=== PATIENT | female | born 1985 | race Caucasian/White ===

== ENCOUNTER 2016-05-01 18:52 | Emergency (ER) | payer OTHER ==
[~2016-05-01] VITALS: Ht 162.6 cm; Wt 63.5 kg
[2016-05-01 19:00] VITALS: BP 140/76; PULSE 78; RESP 20; TEMP 97.8; O2SAT 100
--- NOTE | 2016-05-01 19:00 | NUR ---
Patient to ER bed 7 to gown for evaluation. Side rails up. Report given to Joel KING.
--- NOTE | 2016-05-01 19:04 | NUR ---
Trina Brush NP at bedside.
--- NOTE | 2016-05-01 19:10 | NUR ---
PT IS AOX4, C/O RIGHT FLANK PAIN THAT RADIATES TO HER ABDOMEN X 1 DAY WITH PAIN SCALE 8/10. PT DENIES N/V, AFEBRILE.
[2016-05-01] MEDS ORDERED: KETOROLAC TROMETHAMINE 60 MG/2 ML VIAL IM ONE (19:15)
[2016-05-01 19:37] LABS: BILIRUBIN,URINE NEGATIVE (NEGATIVE); BLOOD, URINE NEGATIVE (NEGATIVE); CLARITY/URINE HAZY (CLEAR); COLOR,URINE YELLOW (YELLOW); GLUCOSE,URINE NEGATIVE (NEGATIVE); KETONES,URINE NEGATIVE (NEGATIVE); LEUKOCYTE ESTERASE ,URINE TRACE (NEGATIVE); NITRITE, URINE NEGATIVE (NEGATIVE); PROTEIN URINE NEGATIVE (NEGATIVE); UROBILINOGEN,URINE 0.2 (0.2-1.0)
[2016-05-01 19:56] LABS: BACTERIA,URINE MANY /HPF (None Seen); MUCUS,URINE 2+ /LPF (None Seen); RBC,URINE NONE SEEN /HPF (0-3)
[2016-05-01 20:20] VITALS: BP 128/61; PULSE 74; RESP 20; TEMP 97.8; O2SAT 100
--- NOTE | 2016-05-01 20:20 | NUR ---
Patient given written and verbal discharge instructions and verbalizes understanding. ER MD discussed with patient the results and treatment provided. Patient in stable condition. ID arm band removed. Rx of FLEXERIL 10 MG, MOTRIN 600 MG AND TRAMADOL HCL 50 MG given. Patient educated on pain management and to follow up with PMD. Pain Scale 0/10. Opportunity for questions provided and answered.
== END 2016-05-01 20:20 | disposition home or self-care (01) ==
LOC: SED 18:52
DX: S29.012A Strain of muscle and tendon of back wall of thorax, initial encounter (principal); X58.XXXA Exposure to other specified factors, initial encounter; Y93.89 Activity, other specified; Y99.8 Other external cause status; Y92.89 Other specified places as the place of occurrence of the external cause
CPT/HCPCS: 81000; 81025; 87086; 96372; 99284; J1885

== ENCOUNTER 2016-07-17 18:42 | Emergency (ER) | payer OTHER ==
[~2016-07-17] VITALS: Ht 167.6 cm; Wt 66.2 kg
[2016-07-17 18:55] VITALS: BP 126/80; PULSE 62; RESP 16; TEMP 98.2; O2SAT 98
[2016-07-17] MEDS ORDERED: NACL 0.9% 1,000 ML IV ONE (19:04)
[2016-07-17] MEDS ORDERED: ONDANSETRON HCL 4 MG/2 ML VIAL IVP ONE (19:15)
[2016-07-17 19:23] LABS: BASOPHILS # (AUTO) 0.1 K/uL (0.0-0.2); BASOPHILS % (AUTO) 0.8 % (0.0-2.0); EOSINOPHILS # (AUTO) 0.1 K/uL (0.0-0.4); EOSINOPHILS % (AUTO) 0.9 % (0.0-4.0); HEMATOCRIT 42.1 % (36-48); HEMOGLOBIN 13.9 g/dL (12.0-16.0); LYMPHOCYTES # (AUTO) 2.2 K/uL (1.0-5.5); LYMPHOCYTES % (AUTO) 24.3 % (20.5-51.5); MEAN CORPUSCULAR HEMOGLOBIN 30 pg (27-31); MEAN CORPUSCULAR HGB CONC 33 % (32-36); MEAN CORPUSCULAR VOLUME 91 fL (79.0-98.0); MONOCYTES # (AUTO) 0.6 K/uL (0.0-1.0); MONOCYTES % (AUTO) 6.2 % (1.7-9.3); NEUTROPHILS # (AUTO) 6.1 K/uL (1.8-7.7); NEUTROPHILS % (AUTO) 67.8 % (40.0-70.0); PLATELET COUNT (AUTO) 272 K/uL (130-430); RED BLOOD CELL COUNT(AUTO) 4.65 MIL/uL (4.2-6.2); RED CELL DISTRIBUTION WIDTH 12.4 % (9.0-15.0); WHITE BLOOD COUNT (AUTO) 9.1 K/uL (4.8-10.8)
[2016-07-17 19:27] LABS: CALCIUM 9.2 mg/dL (8.4-11.0); CREATININE 1.06 mg/dL (0.55-1.30); POTASSIUM 3.7 mmol/L (3.5-5.1)
[2016-07-17 19:32] LABS: ALBUMIN 4.2 g/dL (3.4-4.8); TOTAL BILIRUBIN 0.4 mg/dL (0.0-1.0); TOTAL PROTEIN, SERUM 7.9 g/dL (6.4-8.3)
[2016-07-17 20:04] LABS: BILIRUBIN,URINE NEGATIVE (NEGATIVE); BLOOD, URINE NEGATIVE (NEGATIVE); CLARITY/URINE CLEAR (CLEAR); COLOR,URINE YELLOW (YELLOW); GLUCOSE,URINE NEGATIVE (NEGATIVE); KETONES,URINE NEGATIVE (NEGATIVE); LEUKOCYTE ESTERASE ,URINE NEGATIVE (NEGATIVE); NITRITE, URINE NEGATIVE (NEGATIVE); PROTEIN URINE NEGATIVE (NEGATIVE); UROBILINOGEN,URINE 0.2 (0.2-1.0)
[2016-07-17] MEDS ORDERED: KETOROLAC TROMETHAMINE 30 MG VIAL IVP ONE (20:15)
[2016-07-17 21:39] VITALS: BP 128/80; PULSE 65; RESP 18; TEMP 98.2; O2SAT 98
== END 2016-07-17 21:39 | disposition home or self-care (01) ==
LOC: SED 18:42
DX: M54.6 Pain in thoracic spine (principal); R10.11 Right upper quadrant pain
CPT/HCPCS: 36415; 71010; 76705; 80053; 81003; 83690; 85025; 96374; 99285; J1885; J7030

== ENCOUNTER 2017-03-08 08:30 | Outpatient (CLI) | payer OTHER | END 2017-03-08 22:20 | disposition home or self-care (01) | LOC: SUS 08:30 | PROVIDERS: ATTEND General Practice | DX: R10.11 Right upper quadrant pain (principal) | CPT/HCPCS: 76700-TC ==

== ENCOUNTER 2017-05-10 08:13 | Outpatient (CLI) | payer OTHER | END 2017-05-10 20:26 | disposition home or self-care (01) | LOC: SNM 08:13 | PROVIDERS: ATTEND General Practice | DX: R10.11 Right upper quadrant pain (principal) | CPT/HCPCS: 78226; A9537 ==

== ENCOUNTER 2017-06-26 08:30 | Outpatient (CLI) | payer OTHER | END 2017-06-26 20:21 | disposition home or self-care (01) | LOC: SCT 08:30 | PROVIDERS: ATTEND Surgery | DX: R10.9 Unspecified abdominal pain (principal) ==

== ENCOUNTER 2017-08-03 09:21 | Day surgery (SDC) | payer OTHER ==
[2017-08-03 09:27] LABS: HCG,QUAL RESULT NEGATIVE (NEGATIVE)
[2017-08-03] MEDS ORDERED: MEPERIDINE HCL/PF 100 MG/ML AMP ONE (09:33)
[2017-08-03] MEDS ORDERED: MIDAZOLAM HCL 5 MG/5 ML VIAL ONE (09:33)
[2017-08-03] MEDS ORDERED: SIMETHICONE 40 MG/0.6 ML ML ONE (09:33)
[2017-08-03] MEDS: MIDAZOLAM HCL 5 MG/5 ML VIAL ONE ×3 (10:06→10:14)
[2017-08-03 13:37] VITALS: BP_SYST 141
== END 2017-08-03 11:30 | disposition home or self-care (01) ==
LOC: SDS 09:21
PROVIDERS: ATTEND Internal Medicine Gastroenterology
DX: K29.50 Unspecified chronic gastritis without bleeding (principal); K44.9 Diaphragmatic hernia without obstruction or gangrene
CPT/HCPCS: 36415; 43239; 84703; 87081; 88305; 88312; 88313; J2175; J2250

== ENCOUNTER 2018-05-22 12:04 | Outpatient (CLI) | payer OTHER ==
[2018-05-22 13:29] LABS: MEAN CORPUSCULAR HEMOGLOBIN 32 pg (27-31); MEAN CORPUSCULAR VOLUME 93 fL (79.0-98.0); RED BLOOD CELL COUNT(AUTO) 4.72 MIL/uL (4.2-6.2); WHITE BLOOD COUNT (AUTO) 6.7 K/uL (4.8-10.8)
[2018-05-22 13:30] LABS: BASOPHILS % (AUTO) 0.7 % (0.0-2.0); EOSINOPHILS # (AUTO) 0.1 K/uL (0.0-0.4); EOSINOPHILS % (AUTO) 1.2 % (0.0-4.0); LYMPHOCYTES # (AUTO) 2.2 K/uL (1.0-5.5); LYMPHOCYTES % (AUTO) 32.8 % (20.5-51.5); MEAN CORPUSCULAR HGB CONC 34 % (32-36); MONOCYTES # (AUTO) 0.5 K/uL (0.0-1.0); MONOCYTES % (AUTO) 7.3 % (1.7-9.3); NEUTROPHILS # (AUTO) 3.9 K/uL (1.8-7.7); PLATELET COUNT (AUTO) 260 K/uL (130-430); RED CELL DISTRIBUTION WIDTH 13.2 % (9.0-15.0)
[2018-05-22 13:59] LABS: BILIRUBIN,DIRECT 0.2 mg/dL (0.0-0.3); CALCIUM 9.1 mg/dL (8.4-11.0); CREATININE 0.85 mg/dL (0.55-1.30); POTASSIUM 4.1 mmol/L (3.5-5.1); TOTAL BILIRUBIN 0.6 mg/dL (0.0-1.0)
== END 2018-05-23 07:11 | disposition home or self-care (01) ==
LOC: SLB 12:04
PROVIDERS: ATTEND General Practice
DX: R10.11 Right upper quadrant pain (principal)
CPT/HCPCS: 36415; 80048; 80076; 82150-TC; 85025

== ENCOUNTER 2018-06-20 08:24 | Outpatient (CLI) | payer OTHER ==
[2018-06-20 14:49] LABS: ALBUMIN 3.9 g/dL (3.4-4.8); BILIRUBIN,DIRECT 0.1 mg/dL (0.0-0.3); CALCIUM 9.4 mg/dL (8.4-11.0); CREATININE 0.99 mg/dL (0.55-1.30); POTASSIUM 3.9 mmol/L (3.5-5.1); TOTAL BILIRUBIN 0.6 mg/dL (0.0-1.0)
[2018-06-21 05:06] LABS: HEPATITIS B CORE AB, IgM Negative (Negative); HEPATITIS C VIRUS AB <0.1 s/co ratio (0.0-0.9)
== END 2018-06-20 20:36 | disposition home or self-care (01) ==
LOC: SUS 08:24
PROVIDERS: ATTEND Physician Assistant Medical
DX: R10.11 Right upper quadrant pain (principal)
CPT/HCPCS: 36415; 76700-TC; 80048; 80076; 82150-TC; 86705; 86706; 86708; 86803